=== PATIENT | female | born 2000 | race Caucasian/White ===

== ENCOUNTER 2024-01-11 16:15 | Outpatient (REF) | payer BC, SELFPAY ==
[2024-01-11 21:53] LABS: ALT 25 U/L (14-59); AST 14 U/L (15-37); Albumin 3.2 g/dL (3.4-5.0); Alkaline Phosphatase 83 U/L (46-116); Amylase 39 U/L (25-115); Anion Gap 8.7 mmol/L (3-11); BUN 12 mg/dL (7-18); Bilirubin, Total 0.17 mg/dL (0.2-1.0); CO2 27.3 mmol/L (21.0-32.0); CREATININE 0.9 mg/dL (0.55-1.02); Chloride 106 mmol/L (98-107); Estimated GFR 92.12 (mL/min/1.73m2); Glucose 92 mg/dL (74-106); Lipase 29 U/L (16-77); Potassium 4.3 mmol/L (3.5-5.1); Sodium 142 mmol/L (136-145); Total Protein 7.8 g/dL (6.4-8.2)
[2024-01-11 21:55] LABS: Abs Immature Grans 0.03 10^3/uL (0.0-0.06); Absolute Basophil Count 0.08 10^3/uL (0.0-0.2); Absolute Lymphocyte Count 2.49 10^3/uL (1.2-3.4); Absolute Monocyte Count 0.58 10^3/uL (0.1-0.8); Absolute Neutrophil Count 8.83 10^3/uL (1.2-6.7); Basophils % 0.7 %; Eosinophils % 0.8 %; HCT 38.8 % (36.0-46.0); HGB 12.5 g/dL (11.2-15.7); Immature Grans % 0.2 %; Lymphocytes % 20.6 %; MCH 25.2 pg (27.0-33.0); MCHC 32.2 % (32.0-36.0); MCV 78 fL (80-95); MPV 9.8 fL (8.0-11.0); Monocytes % 4.8 %; Neutrophils % 72.9 %; Platelet Count 392 10^3/uL (130-400); RBC 4.97 10^6/uL (3.93-5.22); RDW-SD 42.1 fL; WBC 12.11 10^3/uL (4.4-10.8)
[2024-01-11 21:58] LABS: Calcium 9.4 mg/dL (8.5-10.1)
== END 2024-01-11 16:16 | disposition home or self-care (01) ==
LOC: LBN 16:15
PROVIDERS: Visit Provider Nurse Practitioner Family
DX: R10.11 Right upper quadrant pain (principal)
CPT/HCPCS: 80053; 83690; 82150; 85025